=== PATIENT | male | born 1945 | race Caucasian/White ===

== ENCOUNTER 2016-04-19 08:46 | Day surgery (SDC) | payer MEDICARE, OTHER ==
[2016-04-16 16:28] VITALS: BMI 22.9
[~2016-04-19 08:46] MED LIST: LACTATED RINGERS 1,000 ML IV SCH; LIDOCAINE 1% 20 ML VIAL (10MG/ML) FOR IV START INTRADERMA PRN
[2016-04-19 09:07] VITALS: RESP 16; TEMP 97.1
[2016-04-19] MEDS ORDERED: PROPOFOL 10 MG/ML 20 ML VIAL IV ONE (09:59)
--- NOTE | 2016-04-19 10:00 | P.GSHP ---
History of Present Illness H&P Date: 04/19/16 Chief Complaint: History of colonic polyps and rectal bleeding This is a 70-year-old male referred from Dr. watt. Patient presents today for colonoscopy. He has history of colonic polyps. He is also had issues rectal bleeding. Patient states that his last was colonoscopy 5 years ago. He states that he had a splenic laceration at the time was colonoscopy. This was done at an outside facility. Past Medical History Past Medical History: Cancer, Prostate Disorder, Thyroid Disorder Additional Past Medical History / Comment(s): CURRENT BLOOD IN STOOLS, HX OF SKIN CA, HX OF POLYPS, HX OF CLOSED HEAD INJURY, HAS SOME MEMORY LOSS, HAD SPLEEN "NICKED" WITH PREVIOUS COLONOSCOPY History of Any Multi-Drug Resistant Organisms: None Reported Past Surgical History: Adenoidectomy, Orthopedic Surgery, Tonsillectomy Additional Past Surgical History / Comment(s): RT CATARACT SX, HIP, KNEE, RT WRIST, TOES PREVIOUS SX Past Anesthesia/Blood Transfusion Reactions: Previous Problems w/ Anesthesia Additional Past Anesthesia/Blood Transfusion Reaction / Comment(s): WOKE UP ONCE WITH ANESTHESIA, AND WAS "OVERSEDATED ONCE AND HIS HEART STOPPED" Past Psychological History: Anxiety, Depression Smoking Status: Former smoker Past Alcohol Use History: None Reported Additional Past Alcohol Use History / Comment(s): QUIT SMOKING IN 1970'S, SMOKED UP TO 1PPD, STARTED A TEENAGER Past Drug Use History: None Reported - Past Family History Mother Family Medical History: Cancer Additional Family Medical History / Comment(s): THYROID Medications and Allergies Home Medications Medication Instructions Recorded Confirmed Type Ascorbic Acid [Vitamin C] 1,000 mg PO DAILY 04/16/16 04/19/16 History Docusate Sodium [Dok] 100 mg PO HS 04/16/16 04/19/16 History Donepezil [Aricept] 10 mg PO HS 04/16/16 04/19/16 History Levothyroxine Sodium [Synthroid] 25 mcg PO QAM 04/16/16 04/19/16 History Methylphenidate HCl 10 mg PO DIRECTED 04/16/16 04/19/16 History [Methylphenidate ER] Multivitamins, Thera [Multivitamin] 1 tab PO DAILY 04/16/16 04/19/16 History Sertraline [Zoloft] 100 mg PO QAM 04/16/16 04/19/16 History Tamsulosin [Flomax] 0.4 mg PO QAM 04/16/16 04/19/16 History buPROPion [Wellbutrin] 100 mg PO TID 04/16/16 04/19/16 History busPIRone HCL [Buspar] 30 mg PO BID 04/16/16 04/19/16 History traZODone HCL 200 mg PO HS 04/16/16 04/19/16 History Allergies Allergy/AdvReac Type Severity Reaction Status Date / Time No Known Allergies Allergy Verified 04/19/16 09:16 Surgical - Exam Vital Signs Temp Pulse Resp BP Pulse Ox 97.1 F L 56 L 16 145/72 98 04/19/16 09:05 04/19/16 09:05 04/19/16 09:05 04/19/16 09:05 04/19/16 09:05 - General well developed, no distress - Eyes PERRL - ENT normal pinna - Neck no masses - Respiratory normal expansion - Cardiovascular Rhythm: regular - Abdomen Abdomen: soft, non tender Assessment and Plan Plan: Colonic polyps Rectal bleeding We'll perform colonoscopy
--- NOTE | 2016-04-19 10:11 | P.OP ---
Date of Procedure: 04/19/16 Preoperative Diagnosis: Colon polyp Rectal bleeding Postoperative Diagnosis: Normal colonoscopy Procedure(s) Performed: Colonoscopy Anesthesia: MAC Surgeon: Nicolás Qureshi Pathology: none sent Condition: stable Disposition: PACU Description of Procedure: PROCEDURE: The patient was placed on the endoscopy table in the lateral position. Digital rectal examination was performed which revealed no abnormalities. The prostate was symmetrical without nodules. Flexible colonoscope was then placed in the patient's anus and passed throughout the entire colon. The ileocecal valve was visualized. The cecum, ascending, transverse, descending and sigmoid colon were normal. The rectum was normal as well. There were no masses, polyps or diverticula noted in the entire colon. SUMMARY OF FINDINGS: Normal colonoscopy.
[2016-04-19 10:15] VITALS: BP 126/75; PULSE 51
== END 2016-04-19 10:59 | disposition home or self-care (01) ==
LOC: ORWHC2ENDO 08:46
PROVIDERS: ATTEND Surgery
DX: K62.5 Hemorrhage of anus and rectum (principal); Z86.010 Personal history of colon polyps; N42.9 Disorder of prostate, unspecified; E07.9 Disorder of thyroid, unspecified; K57.30 Diverticulosis of large intestine without perforation or abscess without bleeding; F32.9 Major depressive disorder, single episode, unspecified; F41.9 Anxiety disorder, unspecified; Z87.891 Personal history of nicotine dependence; Z79.899 Other long term (current) drug therapy; Z85.828 Personal history of other malignant neoplasm of skin
CPT/HCPCS: 45378; J2704